=== PATIENT | male | born 1955 | race Caucasian/White ===

== ENCOUNTER 2018-02-24 06:12 | Day surgery (SDC) | payer OTHER ==
[2018-02-17 13:14] VITALS: BMI 37.5
[2018-02-24] MEDS ORDERED: BUPIVACAINE HCL 0.25% 125 MG/50 ML VIAL ONE (07:14)
[2018-02-24] MEDS ORDERED: PROPOFOL 20 ML ONE ×2 (07:21)
[2018-02-24] MEDS ORDERED: SUCCINYLCHOLINE CHLORIDE 200 MG/10 ML VIAL ONE (07:21)
[2018-02-24] MEDS ORDERED: KETOROLAC TROMETHAMINE 30 MG/1 ML VIAL ONE (07:22)
[2018-02-24] MEDS ORDERED: LIDOCAINE HCL 2% JELLY (5 ML/TUBE) ONE (07:22)
[2018-02-24] MEDS ORDERED: LIDOCAINE HCL/PF 2% SDV 5ML VIAL ONE (07:22)
[2018-02-24] MEDS ORDERED: DEXAMETHASONE SOD PHOSPHATE 4 MG/1 ML VIAL ONE (07:22)
[2018-02-24] MEDS ORDERED: MIDAZOLAM HCL 2 MG/2 ML SINGLE DOSE VIAL ONE (07:22)
[2018-02-24] MEDS ORDERED: ONDANSETRON 4 MG/2 ML VIAL ONE (07:22)
[2018-02-24] MEDS ORDERED: ePHEDrine SULFATE 50 MG/1 ML AMPULE ONE (07:50)
[2018-02-24] MEDS ORDERED: ceFAZolin SODIUM 1 GM VIAL ONE (07:52)
[2018-02-24] MEDS ORDERED: BUPIVACAINE HCL/PF 0.25% (2.5MG/ML) 10 ML VIAL IJ ONE (08:27)
[2018-02-24 08:58] VITALS: TEMP 97.7
[2018-02-24] MEDS ORDERED: ONDANSETRON 4 MG/2 ML VIAL IVPUSH PRN (11:34)
[2018-02-24] MEDS ORDERED: oxyCODONE HCL 5 MG TABLET PO PRN (11:34)
[2018-02-24] MEDS ORDERED: LACTATED RINGERS SOLUTION 1,000 ML IV SCH (11:45)
[2018-02-24 16:26] VITALS: PULSE 91
[2018-02-24 16:55] VITALS: BP 136/72
--- NOTE | 2018-02-25 15:50 | OP ---
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 OPERATIVE PROCEDURE: Left ulnar decompression at elbow. SURGEON: Gama Bal MD SONOGRAPHER: ISAURA Mccormack ANESTHESIA: General. COMPLICATIONS: None. ESTIMATED BLOOD LOSS: Minimal. INDICATION FOR PROCEDURE: The patient is a 62-year-old male with the above finding in addition to severe peripheral neuropathy. He elected to proceed with ulnar nerve decompression with the understanding that this will very likely not improve his symptoms. The risks, benefits and alternatives were discussed with the patient at length and proper informed consent was obtained. DESCRIPTION OF PROCEDURE: After proper identification of the patient and the correct operative site, the patient was brought to the operating room and placed supine on the operating table with all prominences well padded. General anesthesia was provided by the anesthesiologist. The left upper extremity was prepped and draped in the usual sterile fashion. A well-padded tourniquet was placed after sterile prep. An Esmarch bandage was used to exsanguinate the left upper extremity and the tourniquet was inflated to 250 mmHg. A curvilinear incision was made over the posterior medial aspect of the elbow. The incision was taken sharply through the skin with blunt and sharp dissection through the subcutaneous tissues, taking care to protect sensory nerve branches. The ulnar nerve was found just adjacent to the and muscular septum proximally, which was resected. The nerve was then traced in a distal to proximal direction through the cubital tunnel and into the two heads of the flexor carpi ulnaris muscle belly. This provided complete decompression of the nerve. There was no evidence of further compression. The nerve did have a grayish appearance to it, indicating some chronic disease process. No masses were found. There was no subluxation of the nerve with motion. The wound was irrigated with saline and repaired with 4-0 Vicryl and 4-0 Monocryl suture. Steri-Strips and sterile dressings were placed. The patient was reversed from anesthesia and brought to the recovery room in stable condition. He tolerated the procedure well. ISAURA Mccormack, the event sales assistant, was integral throughout the procedure. The procedure could not have been performed without a skilled operative event sales assistant. GAMA BAL M.D. [id number]
== END 2018-02-24 11:30 | disposition home or self-care (01) ==
LOC: FASU 06:12 → EDSEX 07:30 → FASU 11:30
PROVIDERS: ATTEND Orthopaedic Surgery Hand Surgery
PROC: 01N40ZZ Release Ulnar Nerve, Open Approach (ICD-10-PCS; principal; 2018-02-24 07:30)
DX: G56.22 Lesion of ulnar nerve, left upper limb (principal)
CPT/HCPCS: 82962; 94760

== ENCOUNTER 2018-04-07 08:20 | Day surgery (SDC) | payer OTHER ==
[2018-03-30 14:55] VITALS: BMI 38.3
[2018-04-07] MEDS ORDERED: LIDOCAINE HCL/PF 2% SDV 5ML VIAL ONE (09:23)
[2018-04-07] MEDS ORDERED: MIDAZOLAM HCL 2 MG/2 ML SINGLE DOSE VIAL ONE (09:24)
[2018-04-07] MEDS ORDERED: PROPOFOL 20 ML ONE (09:24)
[2018-04-07] MEDS ORDERED: ONDANSETRON 4 MG/2 ML VIAL ONE (09:36)
[2018-04-07] MEDS ORDERED: ePHEDrine SULFATE 50 MG/1 ML AMPULE ONE (09:42)
[2018-04-07] MEDS ORDERED: BUPIVACAINE HCL/PF 2.5 MG/ML - 30 ML VIAL IJ ONE (09:47)
[2018-04-07] MEDS ORDERED: KETOROLAC TROMETHAMINE 30 MG/1 ML VIAL ONE (10:04)
[2018-04-07] MEDS ORDERED: BUPIVACAINE HCL/PF 0.25% (2.5MG/ML) 10 ML VIAL IJ ONE (10:10)
[2018-04-07] MEDS ORDERED: oxyCODONE HCL 5 MG TABLET PO PRN ×2 (10:36)
[2018-04-07] MEDS ORDERED: ONDANSETRON 4 MG/2 ML VIAL IVPUSH PRN (10:36)
[2018-04-07] MEDS ORDERED: LACTATED RINGERS SOLUTION 1,000 ML IV SCH (10:45)
[2018-04-07 11:57] VITALS: BP 131/75; PULSE 84; TEMP 97.8
--- NOTE | 2018-04-08 08:32 | OP ---
DATE OF OPERATION: 04/07/2018 PREOPERATIVE DIAGNOSIS: Right elbow compressive ulnar neuropathy. POSTOPERATIVE DIAGNOSIS: Right elbow compressive ulnar neuropathy. OPERATIVE PROCEDURE: Right elbow ulnar nerve decompression and cubital tunnel release. SURGEON: Gama Castorena MD DEPARTMENT CLERK: ISAURA Mccormack ANESTHESIA: General. COMPLICATIONS: None. ESTIMATED BLOOD LOSS: Minimal. INDICATION FOR PROCEDURE: The patient is a 62-year-old male with the above finding indicated for operative treatment. Risks, benefits, and alternatives were discussed with the patient at length. Proper informed consent was obtained. DESCRIPTION OF PROCEDURE: After proper identification of the patient and correct operative site, patient was brought to the operating room and placed supine on the operative table. Prominences were well padded. General anesthesia was given. Right upper extremity was prepped and draped in usual sterile fashion. Well-padded tourniquet was placed as well as a sterile prep. An Esmarch bandage was used to exsanguinate the right upper extremity. Tourniquet was inflated to 250 mmHg. A curvilinear incision was made over the posteromedial aspect of the elbow. Incision was taken sharply through the skin with blunt and sharp dissection through the subcutaneous tissues. Ulnar nerve was identified proximally and traced from a [id number] direction, through the cubital tunnel, into the 2 heads of the flexor carpi ulnaris muscle. It was completely decompressed from the medial intermuscular septum to this area. Significant tightening was found underneath Richardson ligament which was, of course, released. The elbow was taken through a range of motion. There was no further compression on the nerve, and there was no subluxation. Therefore, no transposition was performed. Wound was irrigated and repaired with a 4-0 Monocryl and 4-0 Vicryl suture. Sterile dressings were applied. Patient was reversed from anesthesia and brought to Recovery in stable condition. He tolerated the procedure well. Jeremías DE [id number]
== END 2018-04-07 12:01 | disposition home or self-care (01) ==
LOC: FASU 08:20
PROVIDERS: ATTEND Orthopaedic Surgery Hand Surgery
PROC: 01N40ZZ Release Ulnar Nerve, Open Approach (ICD-10-PCS; principal; 2018-04-07 09:30)
DX: G56.21 Lesion of ulnar nerve, right upper limb (principal)
CPT/HCPCS: 82962; 94760